=== PATIENT | female | born 1990 | race American Indian/Alaskan Native ===

== ENCOUNTER 2017-10-17 23:50 | Emergency (ER) | payer MEDICAID ==
[2017-10-18] MEDS ORDERED: TYLENOL PO ONE (00:45)
[2017-10-18] MEDS ORDERED: TYLENOL ONE (00:50)
[2017-10-18 02:02] LABS: Basophils % (Auto) 0.2 % (0.0-1.8); Eosinophils # (Auto) 0.1 K/mm3 (0.0-0.4); Eosinophils % (Auto) 1.4 % (0.0-4.3); Hematocrit 39.1 % (30.3-42.9); Lymphocytes # (Auto) 1.9 K/mm3 (1.2-5.4); Lymphocytes % (Auto) 22.7 % (13.4-35.0); Mean Corpuscular HGB Conc 33 % (30-34); Mean Corpuscular Hemoglobin 28 pg (28-32); Mean Corpuscular Volume 84 fl (79-97); Monocytes # (Auto) 0.6 K/mm3 (0.0-0.8); Monocytes % (Auto) 7.5 % (0.0-7.3); Platelet Count 188 K/mm3 (140-440); Red Blood Count 4.66 M/mm3 (3.65-5.03); Red Cell Distribution Width 13.7 % (13.2-15.2)
--- NOTE | 2017-10-18 03:49 | Emergency Department Report ---
ED General Adult HPI - General Chief complaint: Vaginal Bleeding Stated complaint: 10 WKS WITH PAIN AND BLEEDING Time Seen by Provider: 10/18/17 03:00 Source: patient Mode of arrival: Ambulatory Limitations: No Limitations - History of Present Illness Initial comments: Ms. Sorenson is very pleasant EGA 10 weeks 4 days according to dates. She presents with cramping and vaginal bleeding. Initially heavy flow now spotting. Has received care at [facility]. Plans to delivery baby at [facility]. Hx of miscarriage and stillbirth. Has 2 healthy children. Severity scale (0 -10): 3 Quality: other (cramps) Consistency: constant Improves with: medication Worsens with: none - Related Data Previous Rx's Medication Instructions Recorded Last Taken Type Meclizine [Antivert] 25 mg PO BID PRN #30 tablet 09/20/13 Unknown Rx Ondansetron [Zofran Odt] 4 mg PO PRN #14 tab.rapdis 09/20/13 Unknown Rx HYDROcodone/APAP 5-325 [[place] 1 each PO Q6H PRN #20 tablet 11/11/13 Unknown Rx 5-325 mg TAB] Ibuprofen [Motrin 600 MG tab] 600 mg PO Q6HR #30 tablet 11/11/13 Unknown Rx Vit-Fe Fumar-FA [ 1 each PO QDAY #60 tablet 11/11/13 Unknown Rx Vitamin] Allergies Allergy/AdvReac Type Severity Reaction Status Date / Time No Known Allergies Allergy Verified 11/10/13 04:05 ED Review of Systems ROS: Stated complaint: 10 WKS WITH PAIN AND BLEEDING Other details as noted in HPI Comment: All other systems reviewed and negative Constitutional: denies: fever Eyes: denies: eye discharge Respiratory: denies: cough Cardiovascular: denies: chest pain ED Past Medical Hx - Past Medical History Previous Medical History?: No Hx Hypertension: No Hx Congestive Heart Failure: No Hx Diabetes: No Hx Deep Vein Thrombosis: No Hx Renal Disease: No Hx Sickle Cell Disease: No Hx Seizures: No Hx Asthma: No Hx COPD: No Hx HIV: No - Surgical History Past Surgical History?: No - Social History Smoking Status: Never Smoker Substance Use Type: None - Medications Home Medications: Home Medications Medication Instructions Recorded Confirmed Last Taken Type Meclizine [Antivert] 25 mg PO BID PRN #30 tablet 09/20/13 11/10/13 Unknown Rx Ondansetron [Zofran Odt] 4 mg PO PRN #14 tab.rapdis 09/20/13 11/10/13 Unknown Rx HYDROcodone/APAP 5-325 [[place] 1 each PO Q6H PRN #20 tablet 11/11/13 Unknown Rx 5-325 mg TAB] Ibuprofen [Motrin 600 MG tab] 600 mg PO Q6HR #30 tablet 11/11/13 Unknown Rx Vit-Fe Fumar-FA [ 1 each PO QDAY #60 tablet 11/11/13 Unknown Rx Vitamin] ED Physical Exam - General Limitations: No Limitations General appearance: alert, in no apparent distress - Head Head exam: Present: atraumatic, normocephalic - Eye Eye exam: Present: normal appearance - ENT ENT exam: Present: mucous membranes moist - Neck Neck exam: Present: normal inspection. Absent: tenderness, meningismus - Respiratory Respiratory exam: Present: normal lung sounds bilaterally. Absent: respiratory distress, wheezes, rales, rhonchi - Cardiovascular Cardiovascular Exam: Present: regular rate, normal rhythm. Absent: systolic murmur, diastolic murmur, rubs, gallop - GI/Abdominal GI/Abdominal exam: Present: soft, normal bowel sounds. Absent: distended, tenderness, guarding, rebound - Extremities Exam Extremities exam: Present: normal inspection - Back Exam Back exam: Present: normal inspection - Neurological Exam Neurological exam: Present: alert, oriented X3 - Psychiatric Psychiatric exam: Present: normal affect, normal mood - Skin Skin exam: Present: warm, dry, intact, normal color. Absent: rash ED Course Vital Signs 10/18/17 00:40 Temperature 98.4 F Pulse Rate 71 Respiratory 20 Rate Blood Pressure 133/87 O2 Sat by Pulse 100 Oximetry ED Medical Decision Making - Lab Data Result diagrams: 10/18/17 01:01 Vital Signs - 24 hr 10/18/17 10/18/17 00:40 00:55 Temperature 98.4 F Pulse Rate 71 Respiratory 20 18 Rate Blood Pressure 133/87 O2 Sat by Pulse 100 Oximetry Laboratory Tests 10/18/17 10/18/17 10/18/17 01:01 01:01 01:06 WBC 8.2 RBC 4.66 Hgb 13.0 Hct 39.1 MCV 84 MCH 28 MCHC 33 RDW 13.7 Plt Count 188 Lymph % (Auto) 22.7 [place] % (Auto) 7.5 H Eos % (Auto) 1.4 Baso % (Auto) 0.2 Lymph # 1.9 [place] # 0.6 Eos # 0.1 Baso # 0.0 Seg Neutrophils % 68.2 Seg Neutrophils # 5.6 HCG, Quant [id number] H Blood Type O POSITIVE Antibody Screen Negative - Medical Decision Making Ms. Sorenson presents with threatened miscarriage. I performed bedside ultrasound using transabdominal probe which revealed Viable IUP with + cardiac activity. Patient given reassurance and return precautions. Next visit scheduled for next week. Rh positive Critical care attestation.: If time is entered above; I have spent that time in minutes in the direct care of this critically ill patient, excluding procedure time. ED Disposition Clinical Impression: Threatened miscarriage Disposition: DC-01 TO HOME OR SELFCARE Is pt being admited?: No Does the pt Need Aspirin: No Condition: Stable Instructions: Threatened Miscarriage (ED) Forms: Work/School Release Form(ED) Time of Disposition: 03:48
[2017-10-18 04:20] VITALS: BP 124/70
== END 2017-10-18 04:45 | disposition home or self-care (01) ==
LOC: ED 23:50
DX: O20.0 Threatened abortion (principal); Z3A.10 10 weeks gestation of pregnancy
CPT/HCPCS: 36415; 84702; 85025; 86850; 86900; 86901; 99283